=== PATIENT | male | born 1960 | race Caucasian/White ===

== ENCOUNTER 2023-05-08 10:52 | Emergency (ER) | payer MEDICAID ==
[~2023-05-08] VITALS: Ht 175.3 cm; Wt 91.0 kg
[2023-05-08 11:51] VITALS: O2SAT 95
[2023-05-08] MEDS ORDERED: ACETAMINOPHEN 325MG TABLET PO ONE (13:00)
[2023-05-08 13:35] VITALS: TEMP 98.2
[2023-05-08] MEDS ORDERED: ACET-2708 MT (15:41)
[2023-05-08 16:21] VITALS: BP 134/78; PULSE 74; RESP 23
== END 2023-05-08 16:22 | disposition home or self-care (01) ==
LOC: ER 14:39
DX: S43.402A Unspecified sprain of left shoulder joint, initial encounter (principal); S09.90XA Unspecified injury of head, initial encounter; W18.30XA Fall on same level, unspecified, initial encounter; Y93.89 Activity, other specified; Y92.89 Other specified places as the place of occurrence of the external cause; Y99.8 Other external cause status
CPT/HCPCS: 70486; 71045; 73030; 99285